=== PATIENT | female | born 1960 | race Caucasian/White ===

== ENCOUNTER 2019-07-05 12:12 | Inpatient (IN) | payer BC, MEDICARE ==
[~2019-07-05] VITALS: Ht 175.3 cm; Wt 92.0 kg
[2019-07-05 13:33] LABS: BASOPHILS % (AUTO) 0.3 % (0-1); EOSINOPHILS % (AUTO) 0.2 % (0-6); HEMOGLOBIN 8.6 g/dl (12.0-16.0); LYMPHOCYTES # (AUTO) 1.1 X10'3 (1.1-4.8); LYMPHOCYTES % (AUTO) 12.6 % (21-51); MEAN CORPUSCULAR HEMOGLOBIN 32.5 PG (27.0-31.0); MEAN CORPUSCULAR VOLUME 98.4 FL (78-98); MEAN PLATELET VOLUME 8.6 FL (7.4-10.4); MONOCYTES # (AUTO) 0.4 X10'3 (0-0.9); NEUTROPHILS # (AUTO) 7.5 X10'3 (1.8-7.7); NEUTROPHILS % (AUTO) 82.9 % (42-75); PLATELET COUNT 228 X10'3 (140-440); RED BLOOD COUNT 2.64 X10'6 (4.20-5.60); RED CELL DISTRIBUTION WIDTH 15.8 % (11.5-14.5); WHITE BLOOD COUNT 9.1 X10'3 (4.5-11.0)
[2019-07-05 13:45] LABS: PARTIAL THROMBOPLASTIN TIME 24 SECONDS (22-32)
[2019-07-05 13:46] LABS: CLARITY,URINE SLIGHTLY CLOUDY (Clear); COLOR,URINE YELLOW (Yellow); GLUCOSE, URINE 100 mg/dl (Neg); KETONES,URINE NEGATIVE (Neg); LEUKOCYTE ESTERASE ,URINE MODERATE (Neg); NITRITES, URINE NEGATIVE (Neg); OCCULT BLOOD,URINE TRACE-INTACT (Neg); PH,URINE 5.5 (4.8-8.0); PROTEIN,URINE NEGATIVE (Neg); UROBILINOGEN,URINE 0.2 E.U/dL (0.2-1.0)
[2019-07-05 13:49] LABS: ALANINE AMINOTRANSFERASE 85 U/L (12-78); ALBUMIN 2.3 G/DL (3.4-5.0); ALBUMIN/GLOBULIN RATIO 0.6 (1.1-1.5); ALKALINE PHOSPHATASE 54 IU/L (46-116); ANION GAP 12 (8-16); ASPARTATE AMINO TRANSFERASE 58 U/L (10-37); BILIRUBIN,TOTAL 0.3 MG/DL (0.1-1.0); BLOOD UREA NITROGEN 84 MG/DL (7-18); BUN/CREATININE RATIO 51.5 (6.6-38.0); CALCIUM 6.9 MG/DL (8.5-10.1); CHLORIDE 118 MMOL/L (99-107); CREATININE 1.63 MG/DL (0.40-0.90); GLUCOSE 198 MG/DL (70-104); POTASSIUM 3.3 MMOL/L (3.5-5.1); SODIUM 149 MMOL/L (135-145); TOTAL CARBON DIOXIDE 18.6 MMOL/L (24-32); TOTAL PROTEIN 5.9 G/DL (6.4-8.2); eGFR 32 ML/MIN
[2019-07-05 13:50] LABS: UA COLLECTION TYPE CLN CATCH MIDSTREAM
[2019-07-05 13:52] LABS: BACTERIA,URINE NONE SEEN /HPF (Neg); MUCUS STRANDS NONE SEEN /LPF (Neg); RBC,URINE 0-2 /HPF (0-2); SQUAMOUS EPITHELIAL CELL,UR FEW /LPF (FEW); WBC,URINE 20-30 /HPF (0-4); YEAST MANY /HPF (NEGATIVE)
[2019-07-05] MEDS ORDERED: nitroGLYCERIN 0.4mg SUBLingual tab SL PRN (14:30)
[2019-07-05] MEDS ORDERED: morphine 2 MG/ML inj. syringe IV PRN (14:30)
[2019-07-05] MEDS ORDERED: acetaminophen 325mg tablet PO PRN (14:30)
[2019-07-05] MEDS ORDERED: magnesium 2GM in 50ml NS 50 ML IV PRN (14:30)
[2019-07-05] MEDS ORDERED: magnesium Cl slow-release 64mg tablet PO PRN (14:30)
[2019-07-05] MEDS ORDERED: magnesium 4gm in 100ml NS 100 ML IV PRN (14:30)
[2019-07-05] MEDS ORDERED: magnesium hydroxide 30ml (MOM) UD suspension PO PRN (14:30)
[2019-07-05] MEDS ORDERED: normal saline 1000ML IV soln IVB ONE (14:30)
[2019-07-05] MEDS ORDERED: calcium chloride inj. 1,000 MG in normal saline 100ml IV soln 90 ML IV ONE (14:30)
[2019-07-05] MEDS ORDERED: mag hydrox/Alum hydrox/simeth 30ml oral suspension PO PRN (14:30)
[2019-07-05] MEDS ORDERED: potassium CL 10mEq/100ml bag 100 ML IV PRN (14:30)
[2019-07-05] MEDS ORDERED: ATOR10TA PO (14:51)
[2019-07-05] MEDS ORDERED: VENL150C2 PO (14:52)
[2019-07-05] MEDS ORDERED: CARV-49 PO (14:54)
[2019-07-05] MEDS ORDERED: OXYC-580 PO (14:54)
[2019-07-05] MEDS ORDERED: FLO0.1T PO (14:55)
[2019-07-05] MEDS ORDERED: LOSA50TA3 PO (14:55)
[2019-07-05] MEDS ORDERED: OMEP40CA13 PO (14:56)
[2019-07-05] MEDS ORDERED: SODI650T29 PO (14:57)
[2019-07-05] MEDS ORDERED: LEVO100T PO (14:57)
[2019-07-05] MEDS ORDERED: RIVA15TA PO (14:58)
[2019-07-05] MEDS ORDERED: OLAN10TA21 PO (14:59)
[2019-07-05] MEDS ORDERED: TRAZ-219 PO (14:59)
--- NOTE | 2019-07-05 15:00 | NUR ---
PT REQUEST VEGITARIAN DIET WHEN ABLE TO EAT.
[2019-07-05] MEDS ORDERED: ESZO2TAB31 PO (15:01)
[2019-07-05] MEDS ORDERED: INSU100I29 SQ (15:02)
[2019-07-05] MEDS ORDERED: OSC500T PO (15:03)
[2019-07-05] MEDS ORDERED: FOLI1TAB16 PO (15:04)
[2019-07-05] MEDS ORDERED: MAGN400T28 PO (15:04)
[2019-07-05 15:30] VITALS: BP 146/82
--- NOTE | 2019-07-05 15:30 | NUR ---
Patient is admitted to room PCU 3015 from ED. I have received report from Jeremias FIERRO and had the opportunity to ask questions and assume patient care. Pt arrives on unit at 1530 with 2 RNs via mai, VSS 146/82 96 98.0 92% on RA denies pain, MRSA swab collected, tele box 59 applied, tucked into bed, assisted to the bathroom, will continue to monitor.
--- NOTE | 2019-07-05 16:01 | NUR ---
PAGER ID: [phone] MESSAGE: [id number] Eda Perez: New admit requesting antihistamines for her nasal congestion, having difficulty inhaling. Thanks Nan [phone]
[2019-07-05] MEDS: fluticasone nasal spray 16GM bottle NS SCH (16:25)
--- NOTE | 2019-07-05 16:26 | NUR ---
Spoke to dr. reid in regards to pt allergies, received new orders for flonase.
[2019-07-05] MEDS ORDERED: glucagon, human recombinant 1mg kit SUBCUT PRN (17:40)
[2019-07-05] MEDS ORDERED: MESSAGE TO PHARMACY PO ONE (17:40)
[2019-07-05] MEDS ORDERED: dextrose 50%-water 50ml dispensing syringe IV PRN ×2 (17:40)
[2019-07-05] MEDS ORDERED: dextrose ORAL solution 15 GM/59 ML bottle PO PRN (17:40)
[2019-07-05] MEDS: potassium CL 10mEq/100ml bag 100 ML IV PRN (17:41)
[2019-07-05] MEDS: pantoprazole 40MG/NS 100ML BAG 100 ML IV SCH (17:53)
[2019-07-05 18:00] VITALS: BP 137/83
--- NOTE | 2019-07-05 18:09 | NUR ---
Spoke to Dr. Escalante, Received orders for H&H Q6H starting from next Troponin, start Clear Liquid Diet no reds
--- NOTE | 2019-07-05 18:30 | NUR ---
Patient in room PCU 3015. I have received report from Nan FIERRO and had the opportunity to ask questions and assume patient care.
--- NOTE | 2019-07-05 19:33 | NUR ---
Problems reprioritized. Patient report given, questions answered & plan of care reviewed with Carolina FIERRO.
[2019-07-05 19:52] LABS: HEMATOCRIT 28.6 % (35.0-45.0); HEMOGLOBIN 9.5 g/dl (12.0-16.0); MEAN CORPUSCULAR HEMOGLOBIN 32.4 PG (27.0-31.0); MEAN CORPUSCULAR HGB CONC 33.2 g/dL (33.0-36.5); MEAN CORPUSCULAR VOLUME 97.5 FL (78-98); MEAN PLATELET VOLUME 8.5 FL (7.4-10.4); PLATELET COUNT 251 X10'3 (140-440); RED BLOOD COUNT 2.93 X10'6 (4.20-5.60); RED CELL DISTRIBUTION WIDTH 15.8 % (11.5-14.5); WHITE BLOOD COUNT 11.4 X10'3 (4.5-11.0)
[2019-07-05] MEDS: fludrocortisone acetate 0.1mg tablet PO SCH (20:05)
[2019-07-05] MEDS: carvedilol 6.25mg tablet PO SCH (20:06)
[2019-07-05] MEDS: potassium Cl 20 mEq SR tablet PO PRN (20:06)
[2019-07-05] MEDS: morphine 2 MG/ML inj. syringe IV PRN (20:09)
[2019-07-05 20:11] LABS: HEMOGLOBIN A1C 5.4 % (4.5-6.2)
[2019-07-05] MEDS ORDERED: zolpidem 5mg tablet PO SCH (21:00)
[2019-07-05] MEDS ORDERED: non-formulary drug (Eszopiclone 1 TAB) PO SCH (21:00)
[2019-07-05] MEDS ORDERED: non-formulary drug (Venlafaxine HCl (Effexor Xr) 1 CAP) PO SCH (21:00)
[2019-07-05] MEDS ORDERED: non-formulary drug (Trazodone HCl 1 TAB) PO SCH (21:00)
[2019-07-05] MEDS ORDERED: atorvastatin 10mg tablet PO SCH (21:00)
[2019-07-05] MEDS: insulin glargine (Lantus) pen - multi-dose SQ SCH (21:00)
--- NOTE | 2019-07-05 21:00 | NUR ---
Marisa held this HS as BS was checked less than 1 HR PC.
[2019-07-05 22:00] VITALS: BP 187/85
[2019-07-05] MEDS: traZODone 50mg tablet PO SCH (22:04)
[2019-07-05] MEDS: atorvastatin 20mg tablet PO SCH (22:05)
[2019-07-05] MEDS: venlafaxine XR 75mg capsule (Q24H) PO SCH (22:06)
[2019-07-05] MEDS: HYDROcodone/acetaminophen 5mg/325mg tablet PO PRN (22:06)
[2019-07-06] MEDS: potassium Cl 20 mEq SR tablet PO PRN (00:24)
[2019-07-06] MEDS: morphine 2 MG/ML inj. syringe IV PRN (00:26)
[2019-07-06] MEDS: pantoprazole 40MG/NS 100ML BAG 100 ML IV SCH ×6 (01:00→21:00)
[2019-07-06 02:00] VITALS: BP 125/66
[2019-07-06 02:51] LABS: ALBUMIN 1.9 G/DL (3.4-5.0); ANION GAP 15 (8-16); BLOOD UREA NITROGEN 67 MG/DL (7-18); CHLORIDE 116 MMOL/L (99-107); GLUCOSE 235 MG/DL (70-104); MAGNESIUM 1.2 MG/DL (1.5-2.4); POTASSIUM 3.9 MMOL/L (3.5-5.1); SODIUM 144 MMOL/L (135-145)
[2019-07-06 02:59] LABS: BUN/CREATININE RATIO 47.5 (6.6-38.0); CALCIUM 6.9 MG/DL (8.5-10.1); CREATININE 1.41 MG/DL (0.40-0.90); eGFR 38 ML/MIN
[2019-07-06 03:03] LABS: TOTAL CARBON DIOXIDE 13.4 MMOL/L (24-32)
--- NOTE | 2019-07-06 06:13 | NUR ---
Patient in room PCU 3015. I have received report from Carolina FIERRO and had the opportunity to ask questions and assume patient care.
[2019-07-06] MEDS: ondansetron/PF 4mg/2ml inj IV PRN ×2 (06:32→15:54)
--- NOTE | 2019-07-06 06:50 | NUR ---
Problems reprioritized. Patient report given, questions answered & plan of care reviewed with Jessenia FIERRO.
[2019-07-06 07:00] VITALS: BP 154/78
[2019-07-06] MEDS: traZODone 50mg tablet PO SCH ×3 (07:33→20:05)
[2019-07-06] MEDS: fludrocortisone acetate 0.1mg tablet PO SCH ×2 (07:33→20:05)
[2019-07-06] MEDS: levoTHYROXINE 100mcg tablet PO SCH (07:33)
[2019-07-06] MEDS: olanzapine 10mg tablet PO SCH (07:33)
[2019-07-06] MEDS: folic acid 1mg tablet PO SCH (07:33)
[2019-07-06] MEDS: calcium carbonate 500mg tablet PO SCH (07:34)
[2019-07-06] MEDS: carvedilol 6.25mg tablet PO SCH ×2 (07:34→20:05)
[2019-07-06] MEDS: magnesium oxide 400mg tablet PO SCH (07:34)
[2019-07-06] MEDS: fluticasone nasal spray 16GM bottle NS SCH (07:34)
[2019-07-06] MEDS ORDERED: non-formulary drug (Omeprazole (Prilosec) 1 CAP) PO SCH (08:00)
[2019-07-06] MEDS ORDERED: OLANZAPINE 10 MG PO SCH (08:00)
[2019-07-06] MEDS: K and/or MAG REPLACEMENT MC SCH (08:00)
[2019-07-06] MEDS ORDERED: CefTRIAXone 2gm/D5W 50ml 50 ML IV SCH (08:30)
[2019-07-06 09:06] LABS: BASOPHILS % (AUTO) 0.2 % (0-1); EOSINOPHILS % (AUTO) 0 % (0-6); HEMATOCRIT 24.4 % (35.0-45.0); HEMOGLOBIN 8.1 g/dl (12.0-16.0); LYMPHOCYTES # (AUTO) 0.8 X10'3 (1.1-4.8); LYMPHOCYTES % (AUTO) 7.3 % (21-51); MEAN CORPUSCULAR HEMOGLOBIN 32.1 PG (27.0-31.0); MEAN CORPUSCULAR HGB CONC 33.3 g/dL (33.0-36.5); MEAN CORPUSCULAR VOLUME 96.4 FL (78-98); MEAN PLATELET VOLUME 8.6 FL (7.4-10.4); MONOCYTES # (AUTO) 0.4 X10'3 (0-0.9); MONOCYTES % (AUTO) 3.4 % (2-12); NEUTROPHILS # (AUTO) 9.9 X10'3 (1.8-7.7); NEUTROPHILS % (AUTO) 89.1 % (42-75); PLATELET COUNT 217 X10'3 (140-440); RED BLOOD COUNT 2.53 X10'6 (4.20-5.60); RED CELL DISTRIBUTION WIDTH 15.9 % (11.5-14.5); WHITE BLOOD COUNT 11.1 X10'3 (4.5-11.0)
[2019-07-06] MEDS: furosemide 20 MG/2 ML vial IV SCH ×2 (09:16→20:40)
--- NOTE | 2019-07-06 09:44 | NUR ---
PAGER ID: [phone] MESSAGE: [id number] marvin gama critical troponin 0.78 danielito corrales [phone]
[2019-07-06 11:00] VITALS: BP 117/69
--- NOTE | 2019-07-06 11:52 | NUR ---
DM Consult: Pt A1C <7 and not appropriate for DM ed at this time. Addendum: 07/06/19 at [address] Amended: Links added.
[2019-07-06] MEDS: insulin Lispro (HumaLOG) vial - multi-dose SQ SCH ×2 (13:35→19:13)
[2019-07-06 15:00] VITALS: BP 151/76
[2019-07-06 15:37] LABS: HEMATOCRIT 26.9 % (35.0-45.0); MEAN CORPUSCULAR HEMOGLOBIN 32.8 PG (27.0-31.0); MEAN CORPUSCULAR HGB CONC 33.4 g/dL (33.0-36.5); MEAN CORPUSCULAR VOLUME 98.5 FL (78-98); MEAN PLATELET VOLUME 8.9 FL (7.4-10.4); PLATELET COUNT 214 X10'3 (140-440); RED BLOOD COUNT 2.73 X10'6 (4.20-5.60); RED CELL DISTRIBUTION WIDTH 16.1 % (11.5-14.5); WHITE BLOOD COUNT 8.7 X10'3 (4.5-11.0)
--- NOTE | 2019-07-06 18:16 | NUR ---
Problems reprioritized. Patient report given, questions answered & plan of care reviewed with keena Morgan.
--- NOTE | 2019-07-06 18:26 | NUR ---
Patient in room PCU 3015. I have received report from Jessenia FIERRO and had the opportunity to ask questions and assume patient care.
--- NOTE | 2019-07-06 18:44 | NUR ---
PAGER ID: [phone] MESSAGE: Patient Eda Perez Rm [id number] Patient's BP is 173/85. She does get Lasix and Coreg scheduled at 1999. Would you like her to have anything else? Thank you! Mony FIERRO ext. [phone]
[2019-07-06 19:00] VITALS: BP 173/85
[2019-07-06] MEDS ORDERED: hydrALAZINE 20mg/ml inj. IV PRN (19:00)
--- NOTE | 2019-07-06 19:01 | NUR ---
Received order for PRN Hydralazine 10mg Q4H PRN for SBP >160.
--- NOTE | 2019-07-06 19:02 | NUR ---
Getting single EKG now per Dr. Escalante to ensure there is no ST changes since her troponins had been elevated.
--- NOTE | 2019-07-06 19:10 | NUR ---
Patient has refused her dinner time insulin despite education on the topic. Although she took insulin earlier today she states that she never would take it at night time with a blood sugar of 86 because if her blood sugar is below 100 when going to sleep she says that she will bottom out through the night.
--- NOTE | 2019-07-06 19:19 | NUR ---
Attempting to get IV access on patient. One PIV infiltrated and the other came out.
[2019-07-06 19:44] LABS: OCCULT BLOOD STOOL NEGATIVE (Neg)
[2019-07-06] MEDS: venlafaxine XR 75mg capsule (Q24H) PO SCH (20:05)
[2019-07-06] MEDS: lactobacillus rhamnosus 10,000 MMU CELLS/CAPSULE PO SCH (20:05)
[2019-07-06] MEDS: atorvastatin 20mg tablet PO SCH (20:05)
--- NOTE | 2019-07-06 20:37 | NUR ---
Patient has had two large episodes of diarrhea this shift so far. She is requesting to get an antidiarrheal and states that she usually takes 24 tablets of Immodium daily at home and she has done this for years. Requested to Dr. Elmore for something for her diarrhea and she would not order anything and says this would need to be her day time hospitalist. Also notified Dr. Elmore that he stool sample came back negative for occult blood and does not look like it has any blood in it as we were ruling out a GI bleed and asked if we could get patient off of the Protonix gtt but she said no this will also have to be up to her day time physician.
[2019-07-06] MEDS: HYDROcodone/acetaminophen 5mg/325mg tablet PO PRN (20:40)
[2019-07-06] MEDS: fluconazole-Diflucan 100MG/NS 50 ML IV SCH (20:41)
[2019-07-06] MEDS: zolpidem 5mg tablet PO PRN (20:56)
[2019-07-06 22:00] VITALS: BP 132/85
[2019-07-06] MEDS: insulin glargine (Lantus) pen - multi-dose SQ SCH (22:16)
[2019-07-07] VITALS (11 sets, daily range): BP systolic 116–154; BP diastolic 30–86
[2019-07-07] MEDS: ondansetron/PF 4mg/2ml inj IV PRN (02:54)
[2019-07-07] MEDS: pantoprazole 40MG/NS 100ML BAG 100 ML IV SCH ×5 (03:54→21:03)
--- NOTE | 2019-07-07 05:46 | NUR ---
[place] documentation: I have reviewed and agree with all interventions, assessments performed and documented by Yesenia FIERRO. [place] Medication Administration: For this medication-pass time frame, all medication were reviewed, dispensed, administered and documented per hospital policy by Yesenia FIERRO.
[2019-07-07 06:09] LABS: BASOPHILS % (AUTO) 0.3 % (0-1); EOSINOPHILS % (AUTO) 0.1 % (0-6); HEMATOCRIT 24.9 % (35.0-45.0); HEMOGLOBIN 8.4 g/dl (12.0-16.0); LYMPHOCYTES # (AUTO) 0.5 X10'3 (1.1-4.8); LYMPHOCYTES % (AUTO) 7.1 % (21-51); MEAN CORPUSCULAR HEMOGLOBIN 33.1 PG (27.0-31.0); MEAN CORPUSCULAR VOLUME 97.4 FL (78-98); MEAN PLATELET VOLUME 8.4 FL (7.4-10.4); MONOCYTES # (AUTO) 0.2 X10'3 (0-0.9); MONOCYTES % (AUTO) 3.1 % (2-12); NEUTROPHILS # (AUTO) 6.9 X10'3 (1.8-7.7); NEUTROPHILS % (AUTO) 89.4 % (42-75); PLATELET COUNT 193 X10'3 (140-440); RED BLOOD COUNT 2.55 X10'6 (4.20-5.60); RED CELL DISTRIBUTION WIDTH 16.2 % (11.5-14.5); WHITE BLOOD COUNT 7.8 X10'3 (4.5-11.0)
--- NOTE | 2019-07-07 06:11 | NUR ---
Problems reprioritized. Patient report given, questions answered & plan of care reviewed with Jessenia FIERRO.
--- NOTE | 2019-07-07 06:17 | NUR ---
Patient in room PCU 3015. I have received report from Mony FIERRO and had the opportunity to ask questions and assume patient care.
[2019-07-07 06:36] LABS: ALBUMIN 1.8 G/DL (3.4-5.0); ANION GAP 12 (8-16); BLOOD UREA NITROGEN 41 MG/DL (7-18); BUN/CREATININE RATIO 32.8 (6.6-38.0); CALCIUM 7.2 MG/DL (8.5-10.1); CHLORIDE 115 MMOL/L (99-107); CREATININE 1.25 MG/DL (0.40-0.90); GLUCOSE 131 MG/DL (70-104); MAGNESIUM 2.3 MG/DL (1.5-2.4); SODIUM 144 MMOL/L (135-145); TOTAL CARBON DIOXIDE 16.8 MMOL/L (24-32); TROPONIN I 0.47 NG/ML (0.0-0.05); eGFR 44 ML/MIN
--- NOTE | 2019-07-07 07:00 | NUR ---
Dr. Escalante informed of K:3.0. Orders: PO K 40 meq, 4 IV K bags 10 meq, also magnesium IV 1 gram.
[2019-07-07] MEDS: fluticasone nasal spray 16GM bottle NS SCH (07:14)
[2019-07-07] MEDS: olanzapine 10mg tablet PO SCH (07:15)
[2019-07-07] MEDS: folic acid 1mg tablet PO SCH (07:15)
[2019-07-07] MEDS: fludrocortisone acetate 0.1mg tablet PO SCH ×2 (07:15→20:07)
[2019-07-07] MEDS: carvedilol 6.25mg tablet PO SCH ×2 (07:15→20:07)
[2019-07-07] MEDS: levoTHYROXINE 100mcg tablet PO SCH (07:15)
[2019-07-07] MEDS: lactobacillus rhamnosus 10,000 MMU CELLS/CAPSULE PO SCH ×2 (07:15→20:06)
[2019-07-07] MEDS: furosemide 20 MG/2 ML vial IV SCH ×2 (07:16→20:07)
[2019-07-07] MEDS: magnesium oxide 400mg tablet PO SCH (07:16)
[2019-07-07] MEDS: calcium carbonate 500mg tablet PO SCH (07:16)
[2019-07-07] MEDS: traZODone 50mg tablet PO SCH ×3 (07:16→20:06)
[2019-07-07] MEDS: K and/or MAG REPLACEMENT MC SCH (08:00)
[2019-07-07] MEDS: CefTRIAXone/D5W-Rocephin 1gm 50 ML IV SCH (08:02)
[2019-07-07] MEDS: fluconazole-Diflucan 100MG/NS 50 ML IV SCH (08:02)
[2019-07-07] MEDS: potassium Cl 20 mEq SR tablet PO PRN (08:03)
[2019-07-07] MEDS: potassium CL 10mEq/100ml bag 100 ML IV PRN ×4 (08:49→20:10)
[2019-07-07] MEDS ORDERED: magnesium 1 gm/2ml inj. 1 GM in normal saline 100ml IV soln 100 ML IV ONE (09:35)
[2019-07-07] MEDS ORDERED: DEXTROSE 5% IV ONE (09:37)
[2019-07-07] MEDS ORDERED: MAGNESIUM IV ONE (09:37)
[2019-07-07] MEDS ORDERED: WATER IV ONE (09:37)
[2019-07-07] MEDS ORDERED: fentaNYL/PF 50MCG/1 ML 2ML syringe ONE (12:18)
[2019-07-07] MEDS ORDERED: LIDOcaine Viscous 15ml cup ONE (12:18)
[2019-07-07] MEDS ORDERED: MIDAZolam 5mg/5ml vial ONE (12:18)
[2019-07-07] MEDS: HYDROcodone/acetaminophen 5mg/325mg tablet PO PRN (17:16)
--- NOTE | 2019-07-07 17:30 | NUR ---
PAGER ID: [phone] MESSAGE: [id number] Ana Veras; patients family members are at bedside, would like to speak with you. Jessenia [phone]
--- NOTE | 2019-07-07 18:17 | NUR ---
Problems reprioritized. Patient report given, questions answered & plan of care reviewed with Mony FIERRO.
--- NOTE | 2019-07-07 18:22 | NUR ---
Patient in room PCU 3015. I have received report from Jessenia FIERRO and had the opportunity to ask questions and assume patient care.
[2019-07-07] MEDS: insulin Lispro (HumaLOG) vial - multi-dose SQ SCH (18:38)
[2019-07-07] MEDS: loperamide 2mg capsule PO PRN (19:07)
[2019-07-07] MEDS: venlafaxine XR 75mg capsule (Q24H) PO SCH (20:06)
[2019-07-07] MEDS: zolpidem 5mg tablet PO PRN (20:07)
[2019-07-07] MEDS: atorvastatin 20mg tablet PO SCH (20:07)
[2019-07-07] MEDS: insulin glargine (Lantus) pen - multi-dose SQ SCH (21:00)
[2019-07-07] MEDS: dextrose ORAL solution 15 GM/59 ML bottle PO PRN ×2 (21:01→21:18)
--- NOTE | 2019-07-07 21:04 | NUR ---
Patient with blood sugar of 56. She was sleeping at this time that it was checked. Patient was woken up and is arousable and when asked if she felt symptomatic she said just tired. She was given a Glucose Shot and will recheck patient again in 15 minutes. Since she was previously a level 2 and now her BG was below 60 she drops two levels so therefore falls off of the protocol.
--- NOTE | 2019-07-08 00:42 | NUR ---
Patient states she has a long hx of depression and is currently taking antidepressants. States she has attempted suicide in the past but is not currently suicidal. Consult for social insurance administrator has been placed.
[2019-07-08 02:00] VITALS: BP 145/56
[2019-07-08] MEDS: dextrose ORAL solution 15 GM/59 ML bottle PO PRN (02:35)
[2019-07-08] MEDS: loperamide 2mg capsule PO PRN ×3 (02:38→15:25)
[2019-07-08] MEDS: pantoprazole 40MG/NS 100ML BAG 100 ML IV SCH ×3 (02:38→11:00)
--- NOTE | 2019-07-08 02:51 | NUR ---
Patient's blood sugar was spot checked due to her having a low value at bedtime to make sure that it had not dropped again. She was 47 at this time. She was awake and alert at this time because she had got up to use the bathroom and was basically asymptomatic aside from just feeling tired. She was given 30 grams of Glucose shot per the protocol and when rechecked came up to 107.
[2019-07-08 04:47] LABS: BASOPHILS % (AUTO) 0.6 % (0-1); EOSINOPHILS % (AUTO) 0.3 % (0-6); HEMOGLOBIN 7.4 g/dl (12.0-16.0); LYMPHOCYTES # (AUTO) 0.5 X10'3 (1.1-4.8); LYMPHOCYTES % (AUTO) 14.7 % (21-51); MEAN CORPUSCULAR HEMOGLOBIN 33.4 PG (27.0-31.0); MEAN CORPUSCULAR HGB CONC 34.2 g/dL (33.0-36.5); MEAN CORPUSCULAR VOLUME 97.7 FL (78-98); MEAN PLATELET VOLUME 8.2 FL (7.4-10.4); MONOCYTES # (AUTO) 0.3 X10'3 (0-0.9); NEUTROPHILS # (AUTO) 2.8 X10'3 (1.8-7.7); NEUTROPHILS % (AUTO) 76.4 % (42-75); PLATELET COUNT 190 X10'3 (140-440); RED BLOOD COUNT 2.22 X10'6 (4.20-5.60); RED CELL DISTRIBUTION WIDTH 15.8 % (11.5-14.5); WHITE BLOOD COUNT 3.7 X10'3 (4.5-11.0)
[2019-07-08 04:48] LABS: HEMATOCRIT 21.6 % (35.0-45.0)
[2019-07-08 05:02] LABS: ALBUMIN 1.6 G/DL (3.4-5.0); ANION GAP 11 (8-16); BLOOD UREA NITROGEN 24 MG/DL (7-18); BUN/CREATININE RATIO 21.1 (6.6-38.0); CALCIUM 6.7 MG/DL (8.5-10.1); CHLORIDE 113 MMOL/L (99-107); CREATININE 1.14 MG/DL (0.40-0.90); GLUCOSE 105 MG/DL (70-104); SODIUM 145 MMOL/L (135-145); eGFR 49 ML/MIN
[2019-07-08 05:06] LABS: POTASSIUM 2.8 MMOL/L (3.5-5.1)
[2019-07-08] MEDS: potassium Cl 20 mEq SR tablet PO PRN ×2 (05:16→09:20)
[2019-07-08] MEDS: HYDROcodone/acetaminophen 5mg/325mg tablet PO PRN (06:10)
--- NOTE | 2019-07-08 06:13 | NUR ---
Problems reprioritized. Patient report given, questions answered & plan of care reviewed with Jessenia FIERRO and Romana FIERRO.
--- NOTE | 2019-07-08 06:14 | NUR ---
Patient in room PCU 3015. I have received report from Mony/Yesenia and had the opportunity to ask questions and assume patient care.
[2019-07-08 07:04] VITALS: BP 120/57
[2019-07-08] MEDS: calcium carbonate 500mg tablet PO SCH (07:40)
[2019-07-08] MEDS: folic acid 1mg tablet PO SCH (07:40)
[2019-07-08] MEDS: traZODone 50mg tablet PO SCH ×3 (07:41→20:47)
[2019-07-08] MEDS: lactobacillus rhamnosus 10,000 MMU CELLS/CAPSULE PO SCH ×2 (07:41→20:47)
[2019-07-08] MEDS: levoTHYROXINE 100mcg tablet PO SCH (07:42)
[2019-07-08] MEDS: fludrocortisone acetate 0.1mg tablet PO SCH ×2 (07:43→21:03)
[2019-07-08] MEDS: magnesium oxide 400mg tablet PO SCH (07:43)
[2019-07-08] MEDS: carvedilol 6.25mg tablet PO SCH ×2 (07:44→20:46)
[2019-07-08] MEDS: olanzapine 10mg tablet PO SCH (07:44)
[2019-07-08] MEDS: CefTRIAXone/D5W-Rocephin 1gm 50 ML IV SCH (07:45)
[2019-07-08] MEDS: furosemide 20 MG/2 ML vial IV SCH ×2 (07:52→20:42)
[2019-07-08] MEDS: K and/or MAG REPLACEMENT MC SCH (08:00)
--- NOTE | 2019-07-08 08:22 | NUR ---
page sent to Dr. Escalante promotional table spacer PAGER ID: [phone] MESSAGE: [id number] Eda Perez - Can we advance diet? Please advise. Romana, [phone]
[2019-07-08] MEDS: fluticasone nasal spray 16GM bottle NS SCH (08:53)
[2019-07-08] MEDS: fluconazole-Diflucan 100MG/NS 50 ML IV SCH (09:20)
[2019-07-08] MEDS ORDERED: CEFD300C3 PO (09:57)
[2019-07-08] MEDS ORDERED: ATOR20TA66 PO (09:57)
[2019-07-08] MEDS ORDERED: FURO-149 PO (09:57)
--- NOTE | 2019-07-08 10:16 | NUR ---
Page sent to Dr. Escalante: PAGER ID: [phone] MESSAGE: [id number] Eda Perez: Patient is having stroke symptoms, calling a stroke alert. Thanks [facility] [phone]
[2019-07-08] MEDS ORDERED: aspirin 81mg tab.chew PO ONE ×2 (10:20→11:45)
--- NOTE | 2019-07-08 10:40 | NUR ---
Called into PCU for stroke alert level 1 for facial droop and slurred speech on bed 3015B. Patient was waiting to be dc'd home and then had an acute event with left sided weakness including the face, arm, leg and slurred speech.
--- NOTE | 2019-07-08 10:58 | NUR ---
Patient was being prepared for discharge as she had been cleared to discharge home. Wound care team was providing wound care and primary nurse took pictures at 1000, at this time the patient was alert with no signs or symptoms of stroke. Patient was exhibiting symptoms of stroke upon return to the room at 1010. Noted slurred speech, left sided facial droop and left sided weakness. This was a change from her baseline. Patient stated, "I think im having a stroke." MD notified, charge nurse notified. Blood sugar was 231. Family at bedside. Patient taken to CT immediately. CT shows no acute findings. New orders to transfer patient to the neuro floor and monitor neuro status q [address] Escalante with any changes in mental status. Vital signs remained at her baseline.
[2019-07-08 11:06] VITALS: BP 124/62
--- NOTE | 2019-07-08 11:44 | NUR ---
Patient gave verbal consent for Telemedicine eval to be done for neuro evaluation for stroke alert. Teleneuro eval was done with [facility] neurology and she did not recommend tpa due to the low number of stoke scale and history of chronic anemia with gastric bypass and egd performed this hospital stay. No active bleeding per the egd report in the chart per Dr. Escalante. I did a swallow eval so patient can now have the asa given that was ordered after the ct scan of brain done that did not show a bleed. I gave the neurologist dr. Escalante's pager number so she can call him and give her the recommendations. I also informed the pt's nurse of swallow eval and to wait for orders from Dr. Escalante regarding stroke orders.
--- NOTE | 2019-07-08 12:11 | NUR ---
Patient in room PCU 3015. I have received report from Romana FIERRO and had the opportunity to ask questions and assume patient care.
--- NOTE | 2019-07-08 12:12 | NUR ---
Problems reprioritized. Patient report given, questions answered & plan of care reviewed with Lonnie on neuro floor.
--- NOTE | 2019-07-08 14:11 | NUR ---
I have reviewed and agree with all interventions, assessments performed and documented by Romana FIERRO.
--- NOTE | 2019-07-08 14:22 | NUR ---
Lonnie [phone] Re: Ana. do you want to continue Protonix drip?
[2019-07-08] MEDS: insulin Lispro (HumaLOG) vial - multi-dose SQ SCH ×2 (15:23→18:55)
[2019-07-08 18:00] VITALS: BP 155/66
--- NOTE | 2019-07-08 18:18 | NUR ---
Problems reprioritized. Patient report given, questions answered & plan of care reviewed with Ashley FIERRO.
[2019-07-08] MEDS: pantoprazole 40mg Tablet.DR PO SCH (19:41)
[2019-07-08] MEDS ORDERED: potassium Cl 20 mEq SR tablet PO PRN ×2 (20:05)
[2019-07-08] MEDS ORDERED: potassium CL 10mEq/100ml bag 100 ML IV PRN (20:05)
[2019-07-08] MEDS ORDERED: magnesium Cl slow-release 64mg tablet PO PRN (20:05)
[2019-07-08] MEDS ORDERED: magnesium 4gm in 100ml NS 100 ML IV PRN (20:05)
[2019-07-08] MEDS: atorvastatin 20mg tablet PO SCH (20:47)
[2019-07-08] MEDS: venlafaxine XR 75mg capsule (Q24H) PO SCH (20:47)
[2019-07-08] MEDS: insulin glargine (Lantus) pen - multi-dose SQ SCH (21:07)
[2019-07-08 22:00] VITALS: BP 178/49
[2019-07-08] MEDS: zolpidem 5mg tablet PO PRN (23:34)
[2019-07-09 02:00] VITALS: BP 148/81
[2019-07-09] MEDS: HYDROcodone/acetaminophen 5mg/325mg tablet PO PRN ×2 (03:23→12:37)
[2019-07-09 06:12] LABS: BASOPHILS % (AUTO) 0.7 % (0-1); EOSINOPHILS % (AUTO) 0.4 % (0-6); HEMATOCRIT 23.1 % (35.0-45.0); HEMOGLOBIN 7.6 g/dl (12.0-16.0); LYMPHOCYTES # (AUTO) 0.8 X10'3 (1.1-4.8); LYMPHOCYTES % (AUTO) 20.3 % (21-51); MEAN CORPUSCULAR HEMOGLOBIN 32.6 PG (27.0-31.0); MEAN CORPUSCULAR HGB CONC 32.8 g/dL (33.0-36.5); MEAN CORPUSCULAR VOLUME 99.4 FL (78-98); MEAN PLATELET VOLUME 8.3 FL (7.4-10.4); MONOCYTES # (AUTO) 0.3 X10'3 (0-0.9); MONOCYTES % (AUTO) 7.5 % (2-12); NEUTROPHILS # (AUTO) 2.7 X10'3 (1.8-7.7); NEUTROPHILS % (AUTO) 71.1 % (42-75); PLATELET COUNT 208 X10'3 (140-440); RED BLOOD COUNT 2.33 X10'6 (4.20-5.60); RED CELL DISTRIBUTION WIDTH 16.1 % (11.5-14.5); WHITE BLOOD COUNT 3.8 X10'3 (4.5-11.0)
[2019-07-09 06:14] LABS: ALBUMIN 1.8 G/DL (3.4-5.0); ANION GAP 8 (8-16); BLOOD UREA NITROGEN 23 MG/DL (7-18); BUN/CREATININE RATIO 18.9 (6.6-38.0); CALCIUM 6.7 MG/DL (8.5-10.1); CHLORIDE 114 MMOL/L (99-107); CREATININE 1.22 MG/DL (0.40-0.90); GLUCOSE 142 MG/DL (70-104); MAGNESIUM 1.5 MG/DL (1.5-2.4); POTASSIUM 4.2 MMOL/L (3.5-5.1); SODIUM 145 MMOL/L (135-145); TOTAL CARBON DIOXIDE 23.2 MMOL/L (24-32); eGFR 45 ML/MIN
--- NOTE | 2019-07-09 06:32 | NUR ---
Problems reprioritized. Patient report given, questions answered & plan of care reviewed with VADIM ZAVALA.
[2019-07-09 07:19] VITALS: BP 149/74
[2019-07-09] MEDS: pantoprazole 40mg Tablet.DR PO SCH (07:39)
[2019-07-09] MEDS: levoTHYROXINE 100mcg tablet PO SCH (07:39)
[2019-07-09] MEDS: fluticasone nasal spray 16GM bottle NS SCH (08:00)
[2019-07-09] MEDS: K and/or MAG REPLACEMENT MC SCH (08:00)
[2019-07-09] MEDS: CefTRIAXone/D5W-Rocephin 1gm 50 ML IV SCH (09:05)
[2019-07-09] MEDS: furosemide 20 MG/2 ML vial IV SCH (09:05)
[2019-07-09] MEDS: lactobacillus rhamnosus 10,000 MMU CELLS/CAPSULE PO SCH (09:06)
[2019-07-09] MEDS: magnesium oxide 400mg tablet PO SCH (09:06)
[2019-07-09] MEDS: carvedilol 6.25mg tablet PO SCH (09:06)
[2019-07-09] MEDS: calcium carbonate 500mg tablet PO SCH (09:07)
[2019-07-09] MEDS: folic acid 1mg tablet PO SCH (09:07)
[2019-07-09] MEDS: traZODone 50mg tablet PO SCH ×2 (09:07→12:37)
[2019-07-09] MEDS: fludrocortisone acetate 0.1mg tablet PO SCH (09:08)
[2019-07-09] MEDS: olanzapine 10mg tablet PO SCH (09:08)
[2019-07-09 10:00] VITALS: BP 160/78
[2019-07-09] MEDS: insulin Lispro (HumaLOG) vial - multi-dose SQ SCH (10:10)
--- NOTE | 2019-07-09 10:18 | NUR ---
Pt sitting up in chair at bedside with visitor in adjacent chair. Feels well. Reviewed CT and MRI. Pt has subtle slurring of speech, there is no aphasia. Still experiencing numb fingers on left hand and left hand is weak.. Can tag writer though,rotating finger to thumb movement left hand impaired. Stroke education provided, and personal risk factors discussed, Prior right parietal stroke noted, DM and cardiovascular disease, pt has been on Xarelto for prior clot which on hold currently due to GIB.
--- NOTE | 2019-07-09 10:50 | NUR ---
Listened at bedside while Dr Elmore discussed pts history of Xarelto use. The pts spouse's recollection is vastly different from the pts as to how long pt has been taking the drug. Pt says some "10 years ago" and spouse says 2-3 years ago. Pt apparently had a leg or thigh injury on the right side and spent a week or so in bed, states a clot developed and traveled to both lungs. Dr Elmore advises pt to see PCP as soon as possible when pt returns to the [facility] to determine whether to restart Xarelto or low dose ASA or either.HGB is up to 7.6 this am.
[2019-07-09] MEDS: loperamide 2mg capsule PO PRN (12:36)
== END 2019-07-09 13:05 | disposition home or self-care (01) | DRG 377 ==
LOC: ER 12:13 → PCU 3S 15:39 → UNDODISIN 07-07 15:05 → ORTHO 4S 07-08 12:45
PROVIDERS: ADMIT Hospitalist; ATTEND Internal Medicine
PROC: 0DJ08ZZ Inspection of Upper Intestinal Tract, Via Natural or Artificial Opening Endoscopic (ICD-10-PCS; principal; 2019-07-07)
DX: K92.2 Gastrointestinal hemorrhage, unspecified (principal); I63.9 Cerebral infarction, unspecified; I21.A1 Myocardial infarction type 2; N17.0 Acute kidney failure with tubular necrosis; I50.33 Acute on chronic diastolic (congestive) heart failure; E43 Unspecified severe protein-calorie malnutrition; N39.0 Urinary tract infection, site not specified; I13.0 Hypertensive heart and chronic kidney disease with heart failure and stage 1 through stage 4 chronic kidney disease, or unspecified chronic kidney disease; L97.419 Non-pressure chronic ulcer of right heel and midfoot with unspecified severity; E87.6 Hypokalemia; E78.5 Hyperlipidemia, unspecified; D50.9 Iron deficiency anemia, unspecified; D63.8 Anemia in other chronic diseases classified elsewhere; E03.9 Hypothyroidism, unspecified; E11.22 Type 2 diabetes mellitus with diabetic chronic kidney disease; E11.621 Type 2 diabetes mellitus with foot ulcer; F32.9 Major depressive disorder, single episode, unspecified; G89.29 Other chronic pain; I25.10 Atherosclerotic heart disease of native coronary artery without angina pectoris; I95.1 Orthostatic hypotension; I48.91 Unspecified atrial fibrillation; K20.9 Esophagitis, unspecified; K52.9 Noninfective gastroenteritis and colitis, unspecified; L97.519 Non-pressure chronic ulcer of other part of right foot with unspecified severity; N18.9 Chronic kidney disease, unspecified; Z79.01 Long term (current) use of anticoagulants; Z79.4 Long term (current) use of insulin; Z79.899 Other long term (current) drug therapy; Z95.5 Presence of coronary angioplasty implant and graft; I25.2 Old myocardial infarction; Z86.14 Personal history of Methicillin resistant Staphylococcus aureus infection; Z86.711 Personal history of pulmonary embolism; Z86.718 Personal history of other venous thrombosis and embolism; Z87.01 Personal history of pneumonia (recurrent); Z98.84 Bariatric surgery status; Z74.01 Bed confinement status; Z79.890 Hormone replacement therapy; Z89.421 Acquired absence of other right toe(s); Z68.30 Body mass index [BMI] 30.0-30.9, adult
CPT/HCPCS: 36415; 43235; 70450; 70544; 70551; 73630; 76937; 80048; 80053; 81001; 82272; 82948; 83036; 83735; 83880; 84443; 84484; 85025; 85027; 85610; 85730; 86885; 86900; 86901; 87081; 87088; 93005; 93306; 93880; 96365; 99152; 99285; A4620; C9113; G0378; J0696; J1450; J1815; J1940; J2250; J2270; J2405; J3010; J3475; J3480; J7040